=== PATIENT | male | born 1990 | race Caucasian/White ===

== ENCOUNTER 2022-11-22 06:40 | Outpatient (OUT) | payer OTHER, SELFPAY ==
[2022-11-22 07:22] LABS: Basophils Percent Auto 0.2 % (0.2-2.0); Eosinophils Absolute Auto 0.2 10^3/uL (0.0-0.7); Eosinophils Percent Auto 1.3 % (0.9-7.0); Hematocrit 40.4 % (42.0-54.0); Hemoglobin 13.4 g/dL (14.0-18.0); Immature Granulocytes Abs Auto 0.05 10^3/uL (0.00-0.03); Immature Granulocytes Pct Auto 0.4 % (0.0-0.5); Lymphocytes Percent Auto 23.2 % (20.5-60.0); Mean Corpuscular HGB Conc 33.2 g/dL (29.9-35.2); Mean Corpuscular Hemoglobin 30.5 pg (25.9-34.0); Mean Corpuscular Volume 91.8 fL (80.0-94.0); Mean Platelet Volume 9.5 fL (9.5-13.5); Monocytes Absolute Auto 0.8 10^3/uL (0.3-0.8); Monocytes Percent Auto 6.3 % (1.7-12.0); Neutrophils Absolute Auto 8.8 10^3/uL (1.4-6.5); Neutrophils Percent Auto 68.6 % (43.0-75.0); Platelet Count 263 10^3/uL (150-450); Red Cell Distribution Width 14.1 % (11.0-15.0); White Blood Count 12.8 10^3/uL (4.0-11.0)
[2022-11-22 08:32] LABS: Estimated Average Glucose 114 mg/dL; Glycohemoglobin A1C 5.6 % (4.5-6.2)
[2022-11-22 08:33] LABS: Alanine Aminotransferase 34 U/L (16-63); Albumin Globulin Ratio 1.1; Albumin Level 4.2 g/dL (3.4-5.0); Alkaline Phosphatase 64 U/L (46-116); Anion Gap 12.7; Aspartate Amino Transferase 24 U/L (15-37); BUN Creatinine Ratio 17.3; Bilirubin Total 0.4 mg/dL (0.2-1.0); Calcium 9.4 mg/dL (8.5-10.1); Carbon Dioxide 28.3 mmol/L (21.0-32.0); Chloride 103 mmol/L (98-107); Chol HDL Ratio 2.8; Cholesterol 154 mg/dL (<=200); Estimated GFR (African America >60 (>=60); Estimated GFR (Non-African Ame 50 (>=60); Globulin 3.9 g/dL; Glucose 102 mg/dL (74-106); HDL Cholesterol 55 mg/dL (40-60); LDL Cholesterol Calculated 89.2 mg/dL; Sodium 140 mmol/L (136-145); Total Protein 8.1 g/dL (6.4-8.2); Triglycerides 49 mg/dL (<=150); Uric Acid 9.3 mg/dL (3.5-7.2); VLDL CHOLESTEROL 9.8 mg/dL
== END 2022-11-22 06:41 | disposition home or self-care (01) ==
PROVIDERS: PCP Family Medicine; Visit Provider Family Medicine
DX: Z00.00 Encounter for general adult medical examination without abnormal findings (principal)
CPT/HCPCS: 36415; 80053; 80061; 83036; 84550; 85025

== ENCOUNTER 2023-07-29 14:41 | Emergency (ER) | payer OTHER, SELFPAY ==
[2023-07-29 14:52] VITALS: BP 113/86; PULSE 87; RESP 16; TEMP 36.6; O2SAT 97; BMI 30.7
--- NOTE | 2023-07-29 14:58 | XR_ITS ---
The [address] [address] Patient Name: GRETCHEN MATOS MRN: [id number] date: 1990 Sex: M Assigned Patient Location: ER Current Patient Location: ER Accession/Order Number: [id number] Exam Date: 07/29/2023 16:30 Report Date: 07/29/2023 17:13 At the request of: HANS SCHAFER Procedure: XR foot RT min 3V Exam: Radiographs: XR ankle RT min 3V, XR foot RT min 3V Reason for exam: pain Comparison: None XR/XR foot RT min 3V IMPRESSION: Right tibial intramedullary jennifer. Changes of prior external fixation in the calcaneus. Tibiotalar joint degenerative change. Remainder of the right foot and right ankle radiographs is unremarkable. Electronically authenticated by: WILLIAMS SENA Date: 07/29/2023 17:13
--- NOTE | 2023-07-29 14:58 | XR_ITS ---
The [address] [address] Patient Name: GRETCHEN MATOS MRN: [id number] date: 1990 Sex: M Assigned Patient Location: ER Current Patient Location: ER Accession/Order Number: [id number] Exam Date: 07/29/2023 16:30 Report Date: 07/29/2023 17:13 At the request of: HANS SCHAFER Procedure: XR ankle RT min 3V Exam: Radiographs: XR ankle RT min 3V, XR foot RT min 3V Reason for exam: pain Comparison: None XR/XR ankle RT min 3V IMPRESSION: Right tibial intramedullary jennifer. Changes of prior external fixation in the calcaneus. Tibiotalar joint degenerative change. Remainder of the right foot and right ankle radiographs is unremarkable. Electronically authenticated by: WILLIAMS SENA Date: 07/29/2023 17:13
[2023-07-29 17:09] VITALS: BP 134/94; PULSE 68; RESP 16; O2SAT 100
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
== END 2023-07-29 17:49 | disposition home or self-care (01) ==
PROVIDERS: Emergency Provider Emergency Medicine; PCP Family Medicine
DX: M76.61 Achilles tendinitis, right leg (principal)
CPT/HCPCS: 73610; 73630; 99283

== ENCOUNTER 2024-01-07 10:09 | Outpatient (OUT) | payer OTHER, SELFPAY ==
--- NOTE | 2024-01-07 10:41 | XR_ITS ---
The [address] [address] Patient Name: GRETCHEN MATOS MRN: [id number] date: 1990 Sex: M Assigned Patient Location: LAB Current Patient Location: LAB Accession/Order Number: [id number] Exam Date: 01/07/2024 10:45 Report Date: 01/08/2024 08:05 At the request of: RODY MAST Procedure: XR elbow LT 2V EXAM: XR elbow LT 2V HISTORY: Left Elbow Fracture COMPARISON: None. TECHNIQUE: Routine views were obtained for the left elbow. FINDINGS: There is bony deformity and irregularity at the distal humerus extending from the distal humeral diaphysis to the articular surface predominantly at the lateral articular surface at the capitellum. There is moderate post traumatic osteoarthritis seen at the radiocapitellar joint. No joint effusion is seen. 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 Electronically authenticated by: SHERRIE THAYER Date: 01/08/2024 08:05
--- NOTE | 2024-01-07 10:41 | XR_ITS ---
The [address] [address] Patient Name: GRETHCEN MATOS MRN: [id number] date: 1990 Sex: M Assigned Patient Location: LAB Current Patient Location: Accession/Order Number: [id number] Exam Date: 01/07/2024 10:45 Report Date: 01/08/2024 07:05 At the request of: RODY MAST Procedure: XR thoracic spine 2V Three views of the thoracic spine INDICATION: Pain COMPARISON: None XR/XR thoracic spine 2V IMPRESSION: No significant multilevel degenerative changes of the thoracic spine without evidence for acute fracture or subluxation. Mild dextroconvex curvature of the thoracic spine. Partially visualized thoracolumbar posterior spinal fusion hardware beginning at the T12 level. Soft tissues grossly unremarkable. Electronically authenticated by: ELIDA BEGUM Date: 01/08/2024 07:05
--- NOTE | 2024-01-07 10:41 | XR_ITS ---
The [address] [address] Patient Name: GRETCHEN MATOS MRN: [id number] date: 1990 Sex: M Assigned Patient Location: LAB Current Patient Location: LAB Accession/Order Number: [id number] Exam Date: 01/07/2024 10:55 Report Date: 01/08/2024 07:24 At the request of: RODY MAST Procedure: XR clavicle LT EXAM: XR clavicle LT HISTORY: Left Clavicle Fracture COMPARISON: None. TECHNIQUE: Routine views of the left clavicle were obtained. FINDINGS/IMPRESSION: 1. There is no radiographic evidence of acute fracture. 2. 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 3. There is mild marginal spurring at the left acromioclavicular joint. 4. Partially visualized aortic stent is seen. Electronically authenticated by: SHERRIE THAYER Date: 01/08/2024 07:24
--- NOTE | 2024-01-07 10:41 | XR_ITS ---
[address] [address] Patient Name: GRETCHEN MATOS MRN: [id number] date: 1990 Sex: M Assigned Patient Location: LAB Current Patient Location: LAB Accession/Order Number: [id number] Exam Date: 01/07/2024 10:45 Report Date: 01/08/2024 07:48 At the request of: RODY MAST Procedure: XR tibia fibula RIGOBERTO 2V EXAM: XR tibia fibula RIGOBERTO 2V, XR lumbar spine 2-3V. HISTORY: Bilateral lower leg fracture. COMPARISON: None. TECHNIQUE: Routine views of the bilateral tibia and fibula were obtained. Routine views of the lumbar spine were obtained. FINDINGS: Left tibia and fibula: There is a tibial jennifer with a proximal screw and 2 distal screws. There is healed fracture deformity at the distal tibia and fibula diaphysis with extensive callus deposition. The hardware itself is intact. Right tibia and fibula: There is a tibial jennifer extending from the proximal to the distal tibia. There is a proximal screw and 2 distal screws. The right tibia and fibula fracture was seen at the mid aspect of the diaphysis. There is healed fracture deformity with slight cortical malalignment of the fibular diaphyseal fracture. Lumbar spine: There is posterior fusion hardware at T12-L1 with loss of disc height at this level. There is grade 1 retrolisthesis of L1 over L2, L2 over L3 and L3 over L4. XR/XR tibia fibula RIGOBERTO 2V IMPRESSION: Left tibia and fibula: No radiographic evidence of an acute fracture. There is evidence of fracture deformity at the distal tibia and fibular shaft. Right tibia and fibula: Healed fracture deformity with malalignment as described above. Lumbar spine: 1. No radiographic evidence of acute fracture. 2.There is grade 1 retrolisthesis of L1 over L2, L2 over L3 and L3 over L4. 3. Posterior fusion hardware seen at T12-L1 with loss of disc height at this level. Electronically authenticated by: SHERRIE THAYER Date: 01/08/2024 07:48
--- NOTE | 2024-01-07 10:41 | XR_ITS ---
The [address] [address] Patient Name: GRETCHEN MATOS MRN: [id number] date: 1990 Sex: M Assigned Patient Location: LAB Current Patient Location: LAB Accession/Order Number: [id number] Exam Date: 01/07/2024 10:45 Report Date: 01/08/2024 07:48 At the request of: RODY MAST Procedure: XR lumbar spine 2-3V EXAM: XR tibia fibula RIGOBERTO 2V, XR lumbar spine 2-3V. HISTORY: Bilateral lower leg fracture. COMPARISON: None. TECHNIQUE: Routine views of the bilateral tibia and fibula were obtained. Routine views of the lumbar spine were obtained. FINDINGS: Left tibia and fibula: There is a tibial jennifer with a proximal screw and 2 distal screws. There is healed fracture deformity at the distal tibia and fibula diaphysis with extensive callus deposition. The hardware itself is intact. Right tibia and fibula: There is a tibial jennifer extending from the proximal to the distal tibia. There is a proximal screw and 2 distal screws. The right tibia and fibula fracture was seen at the mid aspect of the diaphysis. There is healed fracture deformity with slight cortical malalignment of the fibular diaphyseal fracture. Lumbar spine: There is posterior fusion hardware at T12-L1 with loss of disc height at this level. There is grade 1 retrolisthesis of L1 over L2, L2 over L3 and L3 over L4. XR/XR lumbar spine 2-3V IMPRESSION: Left tibia and fibula: No radiographic evidence of an acute fracture. There is evidence of fracture deformity at the distal tibia and fibular shaft. Right tibia and fibula: Healed fracture deformity with malalignment as described above. Lumbar spine: 1. No radiographic evidence of acute fracture. 2.There is grade 1 retrolisthesis of L1 over L2, L2 over L3 and L3 over L4. 3. Posterior fusion hardware seen at T12-L1 with loss of disc height at this level. Electronically authenticated by: SHERRIE THAYER Date: 01/08/2024 07:48
--- NOTE | 2024-01-07 10:41 | XR_ITS ---
The [address] [address] Patient Name: GRETCHEN MATOS MRN: [id number] date: 1990 Sex: M Assigned Patient Location: LAB Current Patient Location: LAB Accession/Order Number: [id number] Exam Date: 01/07/2024 10:45 Report Date: 01/08/2024 08:06 At the request of: RODY MAST Procedure: XR ribs BI 3V EXAM: XR ribs BI 3V HISTORY: Broken Ribs COMPARISON: None. TECHNIQUE: Routine views of the chest with bilateral ribs were obtained. FINDINGS: There is no radiographic evidence of an acute fracture. There is deformity of the bilateral posterior upper ribs and the right eighth and ninth ribs. There is no radiographic evidence of acute fracture or subluxation. Posterior fusion hardware seen at T12-L1. There is no cardiomegaly. Vascular stent is seen. The lungs are clear. There is no pleural effusion or pneumothorax. XR/XR ribs BI 3V IMPRESSION: No evidence of acute pulmonary process. No no acute rib fractures are seen. Electronically authenticated by: SHERRIE THAYER Date: 01/08/2024 08:06
[2024-01-07 11:03] LABS: Bilirubin Urine NEGATIVE (NEGATIVE); Blood Urine NEGATIVE (NEGATIVE); Clarity Urine CLEAR (CLEAR); Color Urine LT. YELLOW (YELLOW); Glucose Urine UA NEGATIVE (NEGATIVE); Ketones Urine NEGATIVE (NEGATIVE); Leukocyte Esterase Urine NEGATIVE (NEGATIVE); Nitrite Urine NEGATIVE (NEGATIVE); Protein Urine NEGATIVE (NEG/TRACE); Urobilinogen Urine 0.2 EU/dL (0.2-1.0)
[2024-01-07 14:18] LABS: Alanine Aminotransferase 34 U/L (16-63); Albumin Globulin Ratio 1.1; Albumin Level 4.1 g/dL (3.4-5.0); Alkaline Phosphatase 67 U/L (46-116); Anion Gap 11.5; Aspartate Amino Transferase 26 U/L (15-37); Bilirubin Total 0.5 mg/dL (0.2-1.0); Calcium 9.3 mg/dL (8.5-10.1); Carbon Dioxide 29.8 mmol/L (21.0-32.0); Chloride 100 mmol/L (98-107); Estimated GFR (African America >60 (>=60); Estimated GFR (Non-African Ame >60 (>=60); Globulin 3.7 g/dL; Glucose 108 mg/dL (74-106); Potassium 4.3 mmol/L (3.5-5.1); Sodium 137 mmol/L (136-145); Total Protein 7.8 g/dL (6.4-8.2)
== END 2024-01-07 10:10 | disposition home or self-care (01) ==
PROVIDERS: PCP Family Medicine; Visit Provider Chiropractor
DX: S22.49XS Multiple fractures of ribs, unspecified side, sequela (principal); S42.402A Unspecified fracture of lower end of left humerus, initial encounter for closed fracture; S82.91XA Unspecified fracture of right lower leg, initial encounter for closed fracture; S82.92XA Unspecified fracture of left lower leg, initial encounter for closed fracture; S42.002A Fracture of unspecified part of left clavicle, initial encounter for closed fracture; S22.009A Unspecified fracture of unspecified thoracic vertebra, initial encounter for closed fracture; S32.009A Unspecified fracture of unspecified lumbar vertebra, initial encounter for closed fracture; Z90.5 Acquired absence of kidney; M19.122 Post-traumatic osteoarthritis, left elbow; M43.26 Fusion of spine, lumbar region; M51.34 Other intervertebral disc degeneration, thoracic region
CPT/HCPCS: 36415; 71110; 72070; 72100; 73000; 73070; 73590; 80053; 81003

== ENCOUNTER 2024-03-04 08:02 | Outpatient (OUT) | payer OTHER, SELFPAY ==
--- OUTSIDE RECORDS SUMMARY | 2024-03-04 08:06 | XMS_ITS | CCD ---
Author Organization [employer] [facility] Care Team Providers Care Licensed Certified Orthotist Name Role Phone DR LEIDA EDMOND Attending Unavailable DR LEIDA EDMOND Consulting Unavailable DR LEIDA EDMOND Primary Care Unavailable DR LEIDA EDMOND Admitting Unavailable Results Test Name Value Interpretation Reference Range Facil ity CBC AUTO DIFFon 10-20-2021 BASO # 0.0 103/ul Normal 0.0-0.1 [facility] Comment on above: Performed By: #### C BC #### [facility] [address] [place] [address] Dr. Vianey Combs Basophils/100 WBC (Bld) 0.4 % Normal 0.2-2.0 [facility] Comment on above: Performed By: #### C BC #### [facility] [address] [address] [address] Vianey Combs EO # 0.4 103/ul Normal 0.0-0.7 [facility] Comment on above: Performed By: #### C BC #### [facility] [address] [address] [address] Vianey Combs Eosinophils/100 WBC (Bld) 3.9 % Normal 0.9-7.0 [facility] Comment on above: Performed By: #### C BC #### [facility] [address] [address] [address] Vianey Combs Erythrocyte distribution width (RBC) [Ratio] 13.7 % Normal 11.0-15.0 [facility] Comment on above: Performed By: #### C BC #### [facility] [address] [address] [address] Vianey Combs Hematocrit (Bld) [Volume fraction] 40.4 % Critically low 42.0-54.0 [facility] Comment on above: Performed By: #### C BC #### [facility] [address] [place] [address] Dr. Vianey Combs Hemoglobin (Bld) [Mass/Vol] 13.3 g/dL Critically low 14.0-18.0 [facility] Comment on above: Performed By: #### C BC #### [facility] [address] [place] [address] Dr. Vianey Combs IG # 0.02 10e3/ul Normal 0.00-0.03 [facility] Comment on above: Performed By: #### C BC #### [facility] [address] [place] [address] Dr. Vianey Combs IG % 0.2 % Normal 0.0-0.5 [facility] Comment on above: Performed By: #### C BC #### [facility] [address] [place] [address] Dr. Vianey Combs LYMPH # 3.5 103/ul Normal 1.2-3.8 [facility] Comment on above: Performed By: #### C BC #### [facility] [address] [place] [address] Dr. Vianey Combs Lymphocytes/100 WBC (Bld) 36.9 % Normal 20.5-60.0 [facility] Comment on above: Performed By: #### C BC #### [facility] [address] [place] [address] Dr. Vianey Combs MANUAL DIFF REQ NO Normal [facility] Comment on above: Performed By: #### C BC #### [facility] [address] [place] [address] Dr. Vianey Combs MCH (RBC) [Entitic mass] 30.7 pg Normal 25.9-34.0 [facility] Comment on above: Performed By: #### C BC #### [facility] [address] [place] [address] Dr. Vianey Combs MCHC (RBC) [Mass/Vol] 32.9 g/dL Normal 29.9-35.2 [facility] Comment on above: Performed By: #### C BC #### [facility] [id number] Vianey Combs MCV (RBC) [Entitic vol] 93.3 fL Normal 80.0-94.0 [facility] Comment on above: Performed By: #### C BC #### [facility] [id number] Vianey Combs MONO # 0.9 103/ul Critically high 0.3-0.8 [facility] Comment on above: Performed By: #### C BC #### [facility] [address] [address] [address] Vianey Combs Monocytes/100 WBC (Bld) 9.4 % Normal 1.7-12.0 [facility] Comment on above: Performed By: #### C BC #### [facility] [address] [address] [address] Vianey Combs NEUT # 4.6 103/ul Normal 1.4-6.5 [facility] Comment on above: Performed By: #### C BC #### [facility] [address] [address] [address] Vianey Combs Neutrophils/100 WBC (Bld) 49.2 % Normal 43.0-75.0 [facility] Comment on above: Performed By: #### C BC #### [facility] [id number] Vianey Combs Platelet mean volume (Bld) [Entitic vol] 9.5 fL Normal 9.5-13.5 [facility] Comment on above: Performed By: #### C BC #### [facility] [address] [address] [address] Vianey Combs PLT 263 103/ul Normal 150-450 [facility] Comment on above: Performed By: #### C BC #### [facility] [id number] Vianey Combs RBC 4.33 106/ul Critically low 4.70-6.10 [facility] Comment on above: Performed By: #### C BC #### [facility] [address] [address] [address] Vianey Combs WBC 9.3 103/ul Normal 4.0-11.0 [facility] Comment on above: Performed By: #### C BC #### [facility] [address] [address] [address] Vianey Combs GLYCOHEMOGLOBIN A1Con 2021 ADA RECOMMENDATION SEE BELOW Normal [facility] Comment on above: Result Comment: ADA RECOMMENDED LIMIT 4.0 - 6.0 ADA THERAPEUTIC TARGET < 7.0 ACTION SUGGESTED > 7.0 Performed By: #### A 1C #### [facility] [address] [address] [address] Vianey Combs Glucose [Mass/Vol] 117 mg/dL Normal [facility] Comment on above: Performed By: #### A 1C #### [facility] [address] [address] [address] Vianey Combs HbA1c (Bld) [Mass fraction] 5.7 % Normal 4.5-6.2 [facility] Comment on above: Performed By: #### A 1C #### [facility] [address] [place] [address] Dr. Vianey Combs LIPID PROFILEon 10-20-2021 CHOL-HDL RATIO NORM SEE BELOW Normal [facility] Comment on above: Result Comment: 3.3 - 4.4 LOW RISK 4.4 - 7.1 AVERAGE RISK 7.1 - 11.0 MODERATE RISK >11.0 HIGH RISK Performed By: #### C MP, LIPID #### [facility] [address] [address] [address] Vianey Combs Cholesterol [Mass/Vol] 175 mg/dL Normal <=200 [facility] Comment on above: Performed By: #### C MP, LIPID #### [facility] [address] [address] [address] Vianey Combs Cholesterol in HDL [Mass/Vol] 52 mg/dL Normal 40-60 [facility] Comment on above: Performed By: #### C MP, LIPID #### [facility] [address] [address] [address] Vianey Combs Cholesterol in LDL [Mass/Vol] 107.2 mg/dL Normal [facility] Comment on above: Performed By: #### C MP, LIPID #### [facility] [address] [address] [address] Vianey Combs Cholesterol.total/Cho lesterol in HDL [Mass ratio] 3.4 {ratio} Normal [facility] Comment on above: Performed By: #### C MP, LIPID #### [facility] [address] [place] [address] Dr. Vianey Combs HDL NORMAL > or = 60 mg/dl - LOW CARDIOVASCULAR RISK <40 mg/dl - HIGH CARDIOVASCULAR RISK Normal [facility] Comment on above: Performed By: #### C MP, LIPID #### [facility] [address] [place] [address] Dr. Vianey Combs LDL CALC NORMAL SEE BELOW Normal [facility] Comment on above: Result Comment: <100 mg/dl OPTIMAL 100 - 129 mg/dl NEAR OR ABOVE OPTIMAL 130 - 159 mg/dl BORDERLINE HIGH 160 - 189 mg/dl HIGH >190 mg/dl VERY HIGH Performed By: #### C MP, LIPID #### [facility] [address] [place] [address] Dr. Vianey Combs Triglyceride [Mass/Vol] 79 mg/dL Normal <=150 [facility] Comment on above: Performed By: #### C MP, LIPID #### [facility] [address] [place] [address] Dr. Vianey Combs VLDL CALC 15.8 mg/dL Normal [facility] Comment on above: Performed By: #### C MP, LIPID #### [facility] [address] [place] [address] Dr. Vianey Combs PROF 14(COMP METB)on 022 Albumin [Mass/Vol] 3.8 g/dL Normal 3.4-5.0 [facility] Comment on above: Performed By: #### C MP, LIPID #### [facility] [address] [place] [address] Dr. Vianey Combs Albumin/Globulin [Mass ratio] 1.0 {ratio} Normal [facility] Comment on above: Performed By: #### C MP, LIPID #### [facility] [address] [address] [address] Vianey Combs ALP [Catalytic activity/Vol] 57 U/L Normal 46-116 [facility] Comment on above: Performed By: #### C MP, LIPID #### [facility] [address] [address] [address] Vianey Combs ALT [Catalytic activity/Vol] 35 U/L Normal 16-63 [facility] Comment on above: Performed By: #### C MP, LIPID #### [facility] [address] [address] [address] Vianey Combs Anion gap [Moles/Vol] 9.8 mmol/L Normal [facility] Comment on above: Performed By: #### C MP, LIPID #### [facility] [address] [address] [address] Vianey Combs AST [Catalytic activity/Vol] 22 U/L Normal 15-37 [facility] Comment on above: Performed By: #### C MP, LIPID #### [facility] [address] [address] [address] Vianey Combs Bilirubin [Mass/Vol] 0.5 mg/dL Normal 0.2-1.0 [facility] Comment on above: Performed By: #### C MP, LIPID #### [facility] [address] [address] [address] Vianey Combs Calcium [Mass/Vol] 9.0 mg/dL Normal 8.5-10.1 [facility] Comment on above: Performed By: #### C MP, LIPID #### [facility] [address] [address] [address] Vianey Combs Chloride [Moles/Vol] 104 mmol/L Normal 98-107 [facility] Comment on above: Performed By: #### C MP, LIPID #### [facility] [address] [address] [address] Vianey Combs CO2 [Moles/Vol] 30.5 mmol/L Normal 21.0-32.0 [facility] Comment on above: Performed By: #### C MP, LIPID #### [facility] [address] [address] [address] Vianey Combs Creatinine [Mass/Vol] 1.24 mg/dL Normal 0.70-1.30 The [facility] Comment on above: Performed By: #### C MP, LIPID #### [facility] [address] [address] [address] Vianey Combs EGFR-AF LATVIAN >60 Normal >=60 [facility] Comment on above: Performed By: #### C MP, LIPID #### [facility] [address] [place] [address] Dr. Vianey Combs EGFR-NON AF LATVIAN >60 Normal >=60 [facility] Comment on above: Performed By: #### C MP, LIPID #### [facility] [address] [place] [address] Dr. Vianey Combs Globulin (S) [Mass/Vol] 3.7 g/dL Normal [facility] Comment on above: Performed By: #### C MP, LIPID #### [facility] [address] [place] [address] Dr. Vianey Combs Glucose [Mass/Vol] 95 mg/dL Normal 74-106 [facility] Comment on above: Performed By: #### C MP, LIPID #### [facility] [address] [place] [address] Dr. Vianey Combs Potassium [Moles/Vol] 4.3 mmol/L Normal 3.5-5.1 [facility] Comment on above: Performed By: #### C MP, LIPID #### [facility] [address] [place] [address] Dr. Vianey Combs Protein [Mass/Vol] 7.5 g/dL Normal 6.4-8.2 [facility] Comment on above: Performed By: #### C MP, LIPID #### [facility] [address] [place] [address] Dr. Vianey Combs Sodium [Moles/Vol] 140 mmol/L Normal 136-145 [facility] Comment on above: Performed By: #### C MP, LIPID #### [facility] [address] [address] [address] Vianey Combs Urea nitrogen [Mass/Vol] 24.0 mg/dL Critically high 7.0-18.0 [facility] Comment on above: Performed By: #### C MP, LIPID #### [facility] [address] [place], [place] [address] Dr. Vianey Combs Urea nitrogen/Creatinine [Mass ratio] 19.4 mg/mg Normal [facility] Comment on above: Performed By: #### C MP, LIPID #### [facility] [address] [place], [place] [address] Dr. Vianey Combs Encounters Encounter Date Encounter Type Care Provider Facility Start: 10-24-2021 Encounter for genera l adult medical examination without abnormal findings DR LEIDA EDMOND [facility] Start: 10-20-2021 End: 10-21-[address] LEIDA EDMOND Facility: Start: 10-20-2021 End: 10-21-2021 Encounter for general adult medical examination without abnormal findings DR LEIDA EDMOND Facility:[facility] Payers Date Payer Category Payer Unknown [id number] 1959 Unknown [id number] Summary Purpose Family History No Family History Records Found Advance Directives No Advanced Directives Records Found Additional Source Comments (unrecognized sect ion and content) No Status Records Found INFORMATION SOURCE (unrecogn ized section and content) DATE CREATED AUTHOR 10/25/2021 [facility] FOR RECORDS PERTAINING TO PATIENTS WHO ARE OR HAVE BEEN ENROLLED IN A CHEMICAL DEPENDENCY/SUBSTANCEABUSE PROGRAM, SOME INFORMATION MAY BE OMITTED. This clinical summary was aggregated from multiple sources. Caution should be exercised in using it in the provision of clinical care. This summary normalizes information from multiple sources, and as a consequence, information in this document may materially change the coding, format and clinical context of patient data. In addition, data may be omitted in some cases. CLINICAL DECISIONS SHOULD BE BASED ON THE PRIMARY CLINICAL RECORDS. [facility] [employer] [facility]. provides no warranty or guarantee of the accuracy or completeness of information in this document.
[2024-03-04 08:51] LABS: Basophils Absolute Auto 0.1 10^3/uL (0.0-0.1); Basophils Percent Auto 0.4 % (0.2-2.0); Eosinophils Absolute Auto 0.3 10^3/uL (0.0-0.7); Eosinophils Percent Auto 2.2 % (0.9-7.0); Hematocrit 41.3 % (42.0-54.0); Hemoglobin 13.7 g/dL (14.0-18.0); Immature Granulocytes Abs Auto 0.03 10^3/uL (0.00-0.03); Immature Granulocytes Pct Auto 0.3 % (0.0-0.5); Lymphocytes Absolute Auto 2.8 10^3/uL (1.2-3.8); Lymphocytes Percent Auto 23.7 % (20.5-60.0); Mean Corpuscular HGB Conc 33.2 g/dL (29.9-35.2); Mean Corpuscular Hemoglobin 30.3 pg (25.9-34.0); Mean Corpuscular Volume 91.4 fL (80.0-94.0); Mean Platelet Volume 9.6 fL (9.5-13.5); Monocytes Absolute Auto 1.1 10^3/uL (0.3-0.8); Monocytes Percent Auto 9.4 % (1.7-12.0); Neutrophils Absolute Auto 7.4 10^3/uL (1.4-6.5); Platelet Count 273 10^3/uL (150-450); Red Blood Count 4.52 10^6/uL (4.70-6.10); Red Cell Distribution Width 13.8 % (11.0-15.0); White Blood Count 11.6 10^3/uL (4.0-11.0)
== END 2024-03-04 08:03 | disposition home or self-care (01) ==
LOC: LAB 08:04
PROVIDERS: PCP Family Medicine; Visit Provider Chiropractor
DX: D50.9 Iron deficiency anemia, unspecified (principal)
CPT/HCPCS: 36415; 85025

== ENCOUNTER 2024-03-06 12:27 | Outpatient (OUT) | payer OTHER, SELFPAY ==
--- OUTSIDE RECORDS SUMMARY | 2024-03-06 12:41 | XMS_ITS | CCD ---
Author Organization [facility] Care Team Providers Care Supervisor [place] Name Role Phone DR LEIDA EDMOND Attending Unavailable DR LEIDA EDMOND Consulting Unavailable DR LEIDA EDMOND Primary Care Unavailable DR LEIDA EDMOND Admitting Unavailable Results Test Name Value Interpretation Reference Range Facil ity CBC AUTO DIFFon 10-20-2021 BASO # 0.0 103/ul Normal 0.0-0.1 [facility] Comment on above: Performed By: #### C BC #### [facility] [address] [place] [address] Dr. Vianey Combs Basophils/100 WBC (Bld) 0.4 % Normal 0.2-2.0 [facility] Comment on above: Performed By: #### C BC #### [facility] [address] [address] [address] Vianey Combs EO # 0.4 103/ul Normal 0.0-0.7 [facility] Comment on above: Performed By: #### C BC #### [facility] [address] [address] [address] Vianey Combs Eosinophils/100 WBC (Bld) 3.9 % Normal 0.9-7.0 [facility] Comment on above: Performed By: #### C BC #### [facility] [address] [address] [address] Vianey Combs Erythrocyte distribution width (RBC) [Ratio] 13.7 % Normal 11.0-15.0 [facility] Comment on above: Performed By: #### C BC #### [facility] [address] [address] [address] Vianey Combs Hematocrit (Bld) [Volume fraction] 40.4 % Critically low 42.0-54.0 [facility] Comment on above: Performed By: #### C BC #### [facility] [address] [place] [address] Dr. Vianey Combs Hemoglobin (Bld) [Mass/Vol] 13.3 g/dL Critically low 14.0-18.0 [facility] Comment on above: Performed By: #### C BC #### [facility] [address] [place] [address] Dr. Vianey Combs IG # 0.02 10e3/ul Normal 0.00-0.03 [facility] Comment on above: Performed By: #### C BC #### [facility] [address] [place] [address] Dr. Vianey Combs IG % 0.2 % Normal 0.0-0.5 [facility] Comment on above: Performed By: #### C BC #### [facility] [address] [place] [address] Dr. Vianey Combs LYMPH # 3.5 103/ul Normal 1.2-3.8 [facility] Comment on above: Performed By: #### C BC #### [facility] [address] [place] [address] Dr. Vianey Combs Lymphocytes/100 WBC (Bld) 36.9 % Normal 20.5-60.0 [facility] Comment on above: Performed By: #### C BC #### [facility] [address] [place] [address] Dr. iVaney Combs MANUAL DIFF REQ NO Normal [facility] Comment on above: Performed By: #### C BC #### [facility] [address] [place] [address] Dr. Vianey Combs MCH (RBC) [Entitic mass] 30.7 pg Normal 25.9-34.0 [facility] Comment on above: Performed By: #### C BC #### [facility] [address] [place] [address] Dr. Vianey Combs MCHC (RBC) [Mass/Vol] 32.9 g/dL Normal 29.9-35.2 [facility] Comment on above: Performed By: #### C BC #### [facility] [id number] Vianey Combs MCV (RBC) [Entitic vol] 93.3 fL Normal 80.0-94.0 [facility] Comment on above: Performed By: #### C BC #### [facility] [id number] Vianey Combs MONO # 0.9 103/ul Critically high 0.3-0.8 [facility] Comment on above: Performed By: #### C BC #### [facility] [address] [address] [address] Vianey Combs Monocytes/100 WBC (Bld) 9.4 % Normal 1.7-12.0 [facility] Comment on above: Performed By: #### C BC #### [facility] [address] [address] [address] Vianey Combs NEUT # 4.6 103/ul Normal 1.4-6.5 [facility] Comment on above: Performed By: #### C BC #### [facility] [address] [address] [address] Vianey Combs Neutrophils/100 WBC (Bld) 49.2 % Normal 43.0-75.0 [facility] Comment on above: Performed By: #### C BC #### [facility] [id number] Vianey Combs Platelet mean volume (Bld) [Entitic vol] 9.5 fL Normal 9.5-13.5 [facility] Comment on above: Performed By: #### C BC #### [facility] [address] [address] [address] Vianey Combs PLT 263 103/ul Normal 150-450 [facility] Comment on above: Performed By: #### C BC #### [facility] [id number] Vianey Combs RBC 4.33 106/ul Critically low 4.70-6.10 [facility] Comment on above: Performed By: #### C BC #### [facility] [address] [address] [address] Vianey Combs WBC 9.3 103/ul Normal 4.0-11.0 [facility] Comment on above: Performed By: #### C BC #### [facility] [address] [address] [address] Vianey Combs GLYCOHEMOGLOBIN A1Con 2021 ADA RECOMMENDATION SEE BELOW Normal [facility] Comment on above: Result Comment: ADA RECOMMENDED LIMIT 4.0 - 6.0 ADA THERAPEUTIC TARGET < 7.0 ACTION SUGGESTED > 7.0 Performed By: #### A 1C #### [facility] [address] [address] [address] Vianey Combs Glucose [Mass/Vol] 117 mg/dL Normal [facility] Comment on above: Performed By: #### A 1C #### [facility] [address] [address] [address] Vianey Combs HbA1c (Bld) [Mass fraction] 5.7 % Normal 4.5-6.2 [facility] Comment on above: Performed By: #### A 1C #### [facility] [address] [place] [address] Dr. Vianey Combs LIPID PROFILEon 10-20-2021 CHOL-HDL RATIO NORM SEE BELOW Normal [facility] Comment on above: Result Comment: 3.3 - 4.4 LOW RISK 4.4 - 7.1 AVERAGE RISK 7.1 - 11.0 MODERATE RISK >11.0 HIGH RISK Performed By: #### C MP, LIPID #### [facility] [address] [address] [address] Vianey Combs Cholesterol [Mass/Vol] 175 mg/dL Normal <=200 [facility] Comment on above: Performed By: #### C MP, LIPID #### [facility] [address] [address] [address] Vianey Combs Cholesterol in HDL [Mass/Vol] 52 mg/dL Normal 40-60 [facility] Comment on above: Performed By: #### C MP, LIPID #### [facility] [address] [address] [address] Vianey Combs Cholesterol in LDL [Mass/Vol] 107.2 mg/dL Normal [facility] Comment on above: Performed By: #### C MP, LIPID #### [facility] [address] [address] [address] Vianey Combs Cholesterol.total/Cho lesterol in HDL [Mass ratio] 3.4 {ratio} Normal [facility] Comment on above: Performed By: #### C MP, LIPID #### [facility] [address] [place] [address] Dr. Vianey Combs HDL NORMAL > or = 60 mg/dl - LOW CARDIOVASCULAR RISK <40 mg/dl - HIGH CARDIOVASCULAR RISK Normal [facility] Comment on above: Performed By: #### C MP, LIPID #### [facility] [address] [place] [address] Dr. Vianey Combs LDL CALC NORMAL SEE BELOW Normal [facility] Comment on above: Result Comment: <100 mg/dl OPTIMAL 100 - 129 mg/dl NEAR OR ABOVE OPTIMAL 130 - 159 mg/dl BORDERLINE HIGH 160 - 189 mg/dl HIGH >190 mg/dl VERY HIGH Performed By: #### C MP, LIPID #### [facility] [address] [place] [address] Dr. Vianey Combs Triglyceride [Mass/Vol] 79 mg/dL Normal <=150 [facility] Comment on above: Performed By: #### C MP, LIPID #### [facility] [address] [place] [address] Dr. Vianey Combs VLDL CALC 15.8 mg/dL Normal [facility] Comment on above: Performed By: #### C MP, LIPID #### [facility] [address] [place] [address] Dr. Vianey Combs PROF 14(COMP METB)on 022 Albumin [Mass/Vol] 3.8 g/dL Normal 3.4-5.0 [facility] Comment on above: Performed By: #### C MP, LIPID #### [facility] [address] [place] [address] Dr. Vianey Combs Albumin/Globulin [Mass ratio] 1.0 {ratio} Normal [facility] Comment on above: Performed By: #### C MP, LIPID #### [facility] [address] [address] [address] Vianey Combs ALP [Catalytic activity/Vol] 57 U/L Normal 46-116 [facility] Comment on above: Performed By: #### C MP, LIPID #### [facility] [address] [address] [address] Vianey Combs ALT [Catalytic activity/Vol] 35 U/L Normal 16-63 [facility] Comment on above: Performed By: #### C MP, LIPID #### [facility] [address] [address] [address] Vianey Combs Anion gap [Moles/Vol] 9.8 mmol/L Normal [facility] Comment on above: Performed By: #### C MP, LIPID #### [facility] [address] [address] [address] Vianey Combs AST [Catalytic activity/Vol] 22 U/L Normal 15-37 [facility] Comment on above: Performed By: #### C MP, LIPID #### [facility] [address] [address] [address] Vianey Combs Bilirubin [Mass/Vol] 0.5 mg/dL Normal 0.2-1.0 [facility] Comment on above: Performed By: #### C MP, LIPID #### [facility] [address] [address] [address] Vianey Combs Calcium [Mass/Vol] 9.0 mg/dL Normal 8.5-10.1 [facility] Comment on above: Performed By: #### C MP, LIPID #### [facility] [address] [address] [address] Vianey Combs Chloride [Moles/Vol] 104 mmol/L Normal 98-107 [facility] Comment on above: Performed By: #### C MP, LIPID #### [facility] [address] [address] [address] Vianey Combs CO2 [Moles/Vol] 30.5 mmol/L Normal 21.0-32.0 [facility] Comment on above: Performed By: #### C MP, LIPID #### [facility] [address] [address] [address] Vianey Combs Creatinine [Mass/Vol] 1.24 mg/dL Normal 0.70-1.30 [facility] Comment on above: Performed By: #### C MP, LIPID #### [facility] [address] [address] [address] Vianey Combs EGFR-AF GUYANESE >60 Normal >=60 [facility] Comment on above: Performed By: #### C MP, LIPID #### [facility] [address] [place] [address] Dr. Vianey Combs EGFR-NON AF GUYANESE >60 Normal >=60 [facility] Comment on above: Performed By: #### C MP, LIPID #### [facility] [address] [place] [address] Dr. Vianey Combs Globulin (S) [Mass/Vol] 3.7 g/dL Normal [facility] Comment on above: Performed By: #### C MP, LIPID #### [facility] [address] [place] [address] Dr. Vianey Combs Glucose [Mass/Vol] 95 mg/dL Normal 74-106 [facility] Comment on above: Performed By: #### C MP, LIPID #### [facility] [address] [place] [address] Dr. Vianey Combs Potassium [Moles/Vol] 4.3 mmol/L Normal 3.5-5.1 [facility] Comment on above: Performed By: #### C MP, LIPID #### [facility] [address] [place] [address] Dr. Vianey Combs Protein [Mass/Vol] 7.5 g/dL Normal 6.4-8.2 [facility] Comment on above: Performed By: #### C MP, LIPID #### [facility] [address] [place] [address] Dr. Vianey Combs Sodium [Moles/Vol] 140 mmol/L Normal 136-145 [facility] Comment on above: Performed By: #### C MP, LIPID #### [facility] [address] [address] [address] Vianey Combs Urea nitrogen [Mass/Vol] 24.0 mg/dL Critically high 7.0-18.0 [facility] Comment on above: Performed By: #### C MP, LIPID #### [facility] [address] [place], [place] [address] Dr. Vianey Combs Urea nitrogen/Creatinine [Mass ratio] 19.4 mg/mg Normal [facility] Comment on above: Performed By: #### C MP, LIPID #### [facility] [address] [place], [place] [address] Dr. Vianey Combs Encounters Encounter Date Encounter Type Care Provider Facility Start: 10-24-2021 Encounter for genera l adult medical examination without abnormal findings DR LEIDA EMDOND [facility] Start: 10-20-2021 End: 10-21-[address] LEIDA EDMOND Facility: Start: 10-20-2021 End: 10-21-2021 Encounter for general adult medical examination without abnormal findings DR LEIDA EDMOND Facility:[facility] Payers Date Payer Category Payer Unknown [id number] 1959 Unknown [id number] Summary Purpose Family History No Family History Records Found Advance Directives No Advanced Directives Records Found Additional Source Comments (unrecognized sect ion and content) No Status Records Found INFORMATION SOURCE (unrecogn ized section and content) DATE CREATED AUTHOR 10/25/2021 [facility] FOR RECORDS PERTAINING TO PATIENTS WHO [...] BE BASED ON THE PRIMARY CLINICAL RECORDS. [facility] [employer] [facility]. provides no warranty or guarantee of the accuracy or completeness of information in this document.
--- NOTE | 2024-03-06 13:00 | XR_ITS ---
The [address] [address] Patient Name: GRETCHEN MATOS MRN: [id number] date: 1990 Sex: M Assigned Patient Location: CARD Current Patient Location: CARD Accession/Order Number: [id number] Exam Date: 03/06/2024 13:05 Report Date: 03/06/2024 13:32 At the request of: RODY MAST Procedure: XR chest 2V PROCEDURE: XR chest 2V DATE: 03/06/2024 1:05 PM EDT COMPARISONS: Thoracic spine images from 01/07/2024 CLINICAL INDICATION: 33 years Male Bronchopulmonary Disease J98.4 FINDINGS: The cardiomediastinal silhouette and pulmonary vasculature are within normal limits. Thoracic aortic stent in proximal left subclavian stent again identified, stable in appearance The lungs are clear. There is no evidence of pleural effusion or pneumothorax. XR/XR chest 2V IMPRESSION: Chest radiograph is essentially within normal limits. Thoracic aortic stent and proximal left subclavian stent, stable Electronically authenticated by: CHARLIE SUAREZ Date: 03/06/2024 13:32
--- NOTE | 2024-03-06 13:13 | RT_ITS ---
[facility] Test Date: 2024-03-06 Pat Name: GRETCHEN MATOS Department: Room: - Gender: Male [employer] Coordinator: Kt La RRT : 1990 Requested By: [id number] Order Number: [id number] Reading MD: Eugene Cruz Interpretive Statements Spirometry was completed according to ATS criteria. Findings were considered accurate and reproducible. No bronchodilator was administered due to normal spirometric values. Spirometry: -FEV1/FVC: Normal @ 85% -FEV1: Low normal @ 81% -FVC: Reduced @ 77% Flow-volume loop: -Mild restrictive pattern Impressions: -Spirometry shows a mild restrictive pattern. A full PFT including plethysmography and diffusion capacity is recommended for further evaluation. Clinical correlation required. Electronically Signed On 03-09-2024 7:51:12 EST by Eugene Cruz
== END 2024-03-06 12:28 | disposition home or self-care (01) ==
LOC: CARD 12:28
PROVIDERS: PCP Family Medicine; Visit Provider Chiropractor
DX: J98.4 Other disorders of lung (principal)
CPT/HCPCS: 71046; 94010